=== PATIENT | male | born 1960 | race Caucasian/White ===

== ENCOUNTER 2016-09-18 21:08 | Inpatient (IN) ==
[2016-09-18] MEDS ORDERED: ENOXAPARIN 100 MG/ML SYRINGE SUBCUT STA (22:06)
[2016-09-18] MEDS ORDERED: ONDANSETRON 4 MG/2 ML VIAL IV STA (22:06)
[2016-09-18] MEDS ORDERED: MORPHINE 2 MG/1 ML SYRINGE IV STA ×2 (22:06→23:15)
[2016-09-18] MEDS ORDERED: SODIUM CHLORIDE 0.9% 500 ML IV STA (22:06)
[2016-09-18] MEDS ORDERED: ASPIRIN 325 MG TABLET PO STA (22:06)
[2016-09-18] MEDS ORDERED: NITROGLYCERIN 2% OINT 1 INCH/GM PACK TOP STA (22:06)
--- NOTE | 2016-09-18 22:10 | EKG Report ---
Stationary ECG Study [facility] ER Test Date: 09/18/2016 9:18:30 PM Pat Name: MELE ESPINOSA Department: Room: Gender: M Match Marker: Suzanne : 1960 Requested by: Toan Wen Order Number: [id number] Reading MD: BRENT GANDARA Intervals [place] Rate: 70 P: 60 HI: 176 QRS: 9 QRSD: 111 T: 39 QT: 372 QTc: 392 Interpretive Statements SINUS RHYTHM NONSPECIFIC INTRAVENTRICULAR CONDUCTION DELAY Minimal ST DEPRESSION Abnormal R wave progression, consider lead misplacement Electronically Signed On 09-21-16 08:38:47 DRAPERY INSPECTOR by BRENT GANDARA [id number]
[2016-09-18] MEDS ORDERED: ASPIRIN 325 MG TABLET ONE (22:18)
[2016-09-18] MEDS ORDERED: ENOXAPARIN 100 MG/ML SYRINGE SUBCUT ONE (22:18)
[2016-09-18] MEDS ORDERED: MORPHINE 2 MG/1 ML SYRINGE ONE ×2 (22:18→23:18)
[2016-09-18] MEDS ORDERED: ONDANSETRON 4 MG/2 ML VIAL ONE (22:18)
[2016-09-18] MEDS ORDERED: NITROGLYCERIN 2% OINT 1 INCH/GM PACK TOP ONE (22:18)
[2016-09-18] MEDS ORDERED: ENOXAPARIN 120 MG/0.8 ML SYRINGE SUBCUT ONE (22:20)
[2016-09-18 22:27] LABS: Basophils # 0.1 10*3/uL (0.0-0.2); Basophils % 0.6 % (0.0-0.8); Eosinophils # 0.2 10*3/uL (0.0-0.87); Eosinophils % 1.3 % (0.00-10.9); Hematocrit 44.1 VOL% (42.0-52.0); Immature Granulocytes % 0.3 %; Immature Granulocytes Absolute 0.06 #; Lymphocytes # 2.5 10*3/uL (1.4-4.0); Lymphocytes % 14.2 % (21.2-54.2); Mean Corpuscular Hemoglobin 30 PG (27-34); Mean Corpuscular Volume 88.2 FL (87-102); Mean Platelet Volume 10.1 FL (9.6-12.0); Monocytes # 1.5 10*3/uL (0.11-0.8); Monocytes % 8.2 % (1.7-12.7); Neutrophils # 13.4 10*3/uL (1.4-7.4); Neutrophils % 75.4 % (38.7-73.9); Platelet Count 218 T/CUMM (130-400); Red Cell Distribution Width 13.2 % (9.3-17.3); White Blood Count 17.8 T/CUMM (4-12)
[2016-09-18 22:36] LABS: PT Patient Result 10.8 SECS
[2016-09-18 22:58] LABS: CKMB % 8.8 %
[2016-09-18 23:00] LABS: Calcium 8.6 MG/DL (8.5-10.1); Potassium 3.6 MMOL/L (3.5-5.1)
[2016-09-18 23:01] LABS: Troponin I Only 32.3 NG/ML (0.00-0.045)
--- NOTE | 2016-09-18 23:02 | XRay Report ---
History: Chest pain Date: 09/18/2016 Study: Chest x-ray AP portable Comparison exam: No previous chest x-ray available The cardiac silhouette is not enlarged. There is no mediastinal mass. There is no pulmonary vascular engorgement. There is no gross pleural effusion. The lungs are clear for shallow breath. There is [id number] thoracic spondylosis. Impression: Shallow inspiration. No acute cardiopulmonary process PROCEDURE INTERPRETED AT [facility] DEPARTMENT OF RADIOLOGY Final Report Signed by: Dr. Pamela Mckeon
[2016-09-18] MEDS ORDERED: TICAGRELOR 90 MG TABLET PO STA (23:06)
[2016-09-18] MEDS ORDERED: guaiFENesin/DM ER 600-30 MG TABLET PO PRN (23:17)
[2016-09-18] MEDS ORDERED: NICOTINE 21 MG/24 HR PATCH TRANSDERM PRN (23:17)
[2016-09-18] MEDS ORDERED: DOCUSATE SODIUM 100 MG CAPSULE PO PRN (23:17)
[2016-09-18] MEDS ORDERED: POTASSIUM CHLORIDE 20 MEQ TABLET PO PRN (23:17)
[2016-09-18] MEDS ORDERED: MAGNESIUM SULF RIDER 4 GM in PREMIX 1 EACH IV PRN (23:17)
[2016-09-18] MEDS ORDERED: MAGNESIUM SULF RIDER 2 GM in PREMIX 1 EACH IV PRN (23:17)
[2016-09-18] MEDS ORDERED: diphenhydrAMINE CAP 25 MG CAPSULE PO PRN (23:17)
--- NOTE | 2016-09-18 23:17 | Emergency Department Note ---
Lore Covarrubias Emily, am scribing for, and in the presence of, Toan Wen MD 22: 13. Behzad Covarrubias Robert M, MD, personally performed the services described in this documentation, ascribed by Sade Torrez in my presence, and it is both accurate and complete . Arrival - Arrival Chief Complaint: Chest Pain Stated Complaint: Chest pains/ hurting in chest ED Nursing Triage Note: c/c chest pain in epigastric area, non-radiating, no shortness of breath, no diaphoresis. Mode of Arrival: Ambulatory Limitations: No Limitations Source: Patient - History of Present Illness HPI Narrative: Pt is a 56 y/o male who came to ED with c/o mid chest pain that started when waking up this morning. Pt reports he has had epigastric pain all week but nothing like today's chest pain. Pt thought it was indigestion when he woke up this morning but the pain has continued throughout the day. Pt has experienced dyspnea on exertion and when he rests, the pain resolves. Pt denies PCP, smoking, or previous heart issues. No other complaint/pain in ED. Onset (ago): week(s) Consistency: constant Severity: mild Severity scale (1-10): 2 Quality: aching Allergies/Adverse Reactions: Allergies Allergy/AdvReac Type Severity Reaction Status Date / Time No Known Allergies Allergy Unverified 09/18/16 21:14 Home Medications: Home Medications Medication Instructions Recorded Confirmed Type No Known Home Medications [No 09/18/16 09/18/16 History Known Home Medications] Review of System - Review of System 12 point system: reviewed and no additional remarkable complaints except as stated - Review of System Constitutional: Absent: chills, fever, weakness Respiratory: Absent: cough, respiratory distress Cardiovascular: Present: chest pain, dyspnea on exertion Gastrointestinal: Absent: abdominal pain, nausea, vomiting Musculoskeletal: Absent: arm pain, back pain, leg pain, neck pain Skin: Absent: rash Neurological: Absent: headache Medical,Surgical,& Family Hx - Social History Smoking Status: Never smoker Frequency of Alcohol Use: None Type of Drug Use: None Exam Vital Signs: Vital Signs Temperature 97.7 F 09/18/16 21:11 Pulse Rate 73 09/18/16 21:11 Respiratory Rate 18 09/18/16 22:32 Blood Pressure 137/83 09/18/16 21:11 O2 Sat by Pulse Oximetry 98 09/18/16 21:11 - General General appearance: alert, in no apparent distress - Head Head exam: Present: atraumatic, normocephalic - Eye Eye exam: Present: PERRL, EOMI - ENT ENT exam: Present: mucous membranes moist. Absent: mucous membranes dry - Neck Neck exam: Present: full ROM. Absent: tenderness - Chest Chest inspection: Present: symmetric chest wall rise. Absent: tenderness - Respiratory Respiratory exam: Present: normal lung sounds bilaterally. Absent: respiratory distress - Cardiovascular Cardiovascular exam: Present: regular rate, normal rhythm, normal heart sounds - Abdominal Exam Abdominal exam: Present: soft. Absent: distention, tenderness - Extremities Exam Extremities exam: Present: full ROM. Absent: tenderness, pedal edema - Neurological Exam Neurological exam: Present: alert, oriented X3, CN II-XII intact. Absent: motor sensory deficit - Psychiatric Psychiatric exam: Present: normal affect, normal mood - Skin Skin exam: Present: warm, dry Course - Consultations Consultation #1: Dr. Valentin was paged. Time: 23:06 Consultation #2: Discussed the patient with Dr. Valentin who feels that we can care for the patient here despite the fact that we are completely at capacity. We will maintain the patient in the emergency department and treat him symptomatically. If he changes or becomes unstable we will notify Dr. Valentin and he will taken to label pinker. Time: 23:16 Results - Labs CBC & BMP: 09/18/16 22:11 09/18/16 22:11 Lab Results: I have reviewed the patients labs Labs: Lab Results WBC 17.8 T/CUMM (4-12) H 09/18/16 22:11 RBC 5.00 MC/CUMM (3.8-5.5) 09/18/16 22:11 Hgb 15.0 GM/DL (14.0-18.0) 09/18/16 22:11 Hct 44.1 VOL% (42.0-52.0) 09/18/16 22:11 MCV 88.2 FL (87-102) 09/18/16 22:11 MCH 30 PG (27-34) 09/18/16 22:11 MCHC 34.0 GM/DL (32-36) 09/18/16 22:11 RDW 13.2 % (9.3-17.3) 09/18/16 22:11 Plt Count 218 T/CUMM (130-400) 09/18/16 22:11 MPV 10.1 FL (9.6-12.0) 09/18/16 22:11 Neut % (Auto) 75.4 % (38.7-73.9) H 09/18/16 22:11 Lymph % (Auto) 14.2 % (21.2-54.2) L 09/18/16 22:11 [place] % (Auto) 8.2 % (1.7-12.7) 09/18/16 22:11 Eos % (Auto) 1.3 % (0.00-10.9) 09/18/16 22:11 Baso % (Auto) 0.6 % (0.0-0.8) 09/18/16 22:11 Neut # (Auto) 13.4 10*3/uL (1.4-7.4) H 09/18/16 22:11 Lymph # (Auto) 2.5 10*3/uL (1.4-4.0) 09/18/16 22:11 [place] # (Auto) 1.5 10*3/uL (0.11-0.8) H 09/18/16 22:11 Eos # (Auto) 0.2 10*3/uL (0.0-0.87) 09/18/16 22:11 Baso # (Auto) 0.1 10*3/uL (0.0-0.2) 09/18/16 22:11 Immature Gran % 0.3 % 09/18/16 22: Nucleated RBC % 0.0 /100WBC 09/18/16 22:11 Immature Gran # 0.06 # 09/18/16 22: Nucleated RBCs # 0.00 10*3/uL 09/18/16 22:11 INR 1.0 09/18/16 22:11 PT Patient/Control Mix 10.8 SECS 09/18/16 22:11 Sodium 143 MMOL/L (136-145) 09/18/16 22:11 Potassium 3.6 MMOL/L (3.5-5.1) 09/18/16 22: Chloride 106 MMOL/L (98-107) 09/18/16 22:11 Carbon Dioxide 27 MMOL/L (21-32) 09/18/16 22:11 Anion Gap 13.6 MMOL/L (5.0-15.0) 09/18/16 22:11 BUN 10 MG/DL (7-18) 09/18/16 22:11 Creatinine 0.90 MG/DL (0.70-1.30) 09/18/16 22:11 GFR Calculation 130 ML/MIN 09/18/16 22:11 BUN/Creatinine Ratio 11.00 RATIO (6.00-20.00) 09/18/16 22:11 Glucose 99 MG/DL (74-106) 09/18/16 22:11 Calculated Osmolality 283.0 MOS/KG (273-304) 09/18/16 22:11 Calcium 8.6 MG/DL (8.5-10.1) 09/18/16 22:11 Total Creatine Kinase 1480 U/L (39-308) H 09/18/16 22:11 CK-MB (CK-2) 130.3 U/L (0.5-3.6) H 09/18/16 22:11 CK and CKMB Interp 8.8 % 09/18/16 22:11 Troponin I 32.300 NG/ML (0.00-0.045) H 09/18/16 22:11 Lipase 154.0 U/L (73-393) 09/18/16 22:11 - EKG EKG results: interpreted by ERMD (nonspecific ST changes in the septal leads) - Diagnostic Findings Procedure: Chest x-ray: report reviewed by me Disposition Clinical Impression: Non-STEMI (non-ST elevated myocardial infarction) Case discussed with: patient, patient's family Disposition: Still a Patient Condition: Stable Time of Disposition: 23:05
[2016-09-18] MEDS ORDERED: TICAGRELOR 90 MG TABLET ONE (23:18)
[2016-09-18] MEDS ORDERED: SODIUM CHLORIDE 0.45% 1,000 ML IV SCH (23:30)
[2016-09-19 00:08] LABS: Apearance,Urine CLEAR (Clear); Bilirubin,Urine Negative (Negative); Blood, Urine Negative (Negative); Glucose,Urine (UA) Negative (Negative); Ketones,Urine Negative (Negative); Mucus,Urine Occasional /LPF (Occasional); Nitrite,Urine Negative (Negative); Protein,Urine Negative; RBC,Urine <1 /HPF (0-4); Squamous Epithelial Cell,Urine Occasional /HPF (0-10); Urine Color Straw (Yellow); Urine Specific Gravity 1.003 (1.001-1.035); Urine Urobilinogen < 2.0 EU/DL (0.2-1.0)
--- NOTE | 2016-09-19 01:15 | EKG Report ---
Stationary ECG Study [facility] ER Test Date: 09/19/2016 1:13:15 AM Pat Name: MELE ESPINOSA Department: Room: Gender: M Straw Hat Brim Raiser Operator: DONNA : 1960 Requested by: Toan Wen Order Number: [id number] Reading MD: BRENT GANDARA Intervals [place] Rate: 61 P: 25 FL: 173 QRS: 2 QRSD: 104 T: -1 QT: 397 QTc: 400 Interpretive Statements SINUS RHYTHM NONSPECIFIC T-WAVE ABNORMALITY Electronically Signed On 09-21-16 09:15:44 EMBEDDED HARDWARE ENGINEER by BRENT GANDARA [id number]
[2016-09-19 02:16] LABS: CKMB % 8.8 %
[2016-09-19 02:20] LABS: Troponin I Only 36.2 NG/ML (0.00-0.045)
[2016-09-19] MEDS ORDERED: MORPHINE 2 MG/1 ML SYRINGE ONE ×2 (02:30→02:41)
[2016-09-19] MEDS ORDERED: MORPHINE 2 MG/1 ML SYRINGE IV STA (02:51)
--- NOTE | 2016-09-19 04:30 | EKG Report ---
Stationary ECG Study [facility] ER Test Date: 09/19/2016 4:28:05 AM Pat Name: MELE ESPINOSA Department: Room: 128 Gender: M Geology Technician: HAYLEY : 1960 Requested by: Toan Wen Order Number: [id number] Reading MD: BRENT GANDARA Intervals [place] Rate: 64 P: 47 [place]: 172 QRS: 4 QRSD: 95 T: 11 QT: 383 QTc: 392 Interpretive Statements SINUS RHYTHM NONSPECIFIC T-WAVE ABNORMALITY Electronically Signed On 09-21-16 09:18:16 TELEHEALTH DIRECTOR by BRENT GANDARA [email or web address]
[2016-09-19] MEDS ORDERED: MAGNESIUM SULF RIDER 2 GM in PREMIX 1 EACH IV PRN ×2 (08:01→11:54)
[2016-09-19] MEDS ORDERED: diphenhydrAMINE CAP 25 MG CAPSULE PO ONE (08:01)
[2016-09-19] MEDS ORDERED: POTASSIUM CHLORIDE RIDER 10 MEQ in PREMIX 1 EACH IV PRN (08:01)
[2016-09-19] MEDS ORDERED: DIAZEPAM 5 MG TABLET PO ONE (08:01)
--- NOTE | 2016-09-19 08:15 | Cardiology History & Physical ---
Assessment and Plan (1) Non-STEMI (non-ST elevated myocardial infarction) Status: Acute Assessment and plan: 1. 56 year-old WM with family history of CAD (stents in his father starting in his 60s), with one week of exertional angina which is mild but more severe chest pain throughout the day before 13 for hours at a time which eventually resolved emergency room after treatment with Lovenox, aspirin Brilinta 2. His EKG is benign without significant ST changes, but with significant troponin elevation rhythm 20 confirming diagnosis of non-STEMI 3. Add high intensity statin and low-dose beta buddy 4. Left heart catheterization this morning to define his coronary anatomy with intervention as appropriate I discussed with the patient arrest and benefits of heart catheterization including but not limited to: , stroke, heart attack, vascular damage, reaction to medicine or dye, bleeding requiring blood transfusion, failure the procedure, possible need for planned or emergency heart surgery. I have answered all the patient's questions and the patient is agreeable to proceed. Current Visit: Yes History of Present Illness Chief complaint: cp History of present illness: Mr. Patel is a 56 year old male with no known medical history, reports one- week history of mild substernal exertional chest discomfort. However the morning of September 18 after getting up he developed more severe chest discomfort that lasted for hours at a time and waxed and waned throughout the day. He eventually came to the emergency room responded have significant troponin elevation, and was treated with Lovenox and aspirin Brilinta. His chest pain eventually resolved. He was kept emergency room on his was no beds for him. He really has not had much in the way of shortness of breath today. He denies nausea vomiting diaphoresis palpitations dizziness. He denies a previous bradycardia problems. Home Medications Medication Instructions Recorded Confirmed Type No Known Home Medications [No 09/18/16 09/18/16 History Known Home Medications] Allergies Allergy/AdvReac Type Severity Reaction Status Date / Time No Known Allergies Allergy Unverified 09/18/16 21:14 - Cardiovascular Cardiovascular: Present: as per HPI. Absent: chest pain at rest, chest pain with activity - Respiratory Respiratory: Present: as per HPI. Absent: cough, hemoptysis, wheezing Medical,Surgical,& Family Hx - Social History Smoking Status: Never smoker Frequency of Alcohol Use: None Type of Drug Use: None Cardiology Physical Exam - Constitutional Vitals: Vital Signs Temp Pulse Resp BP Pulse Ox 97.7 F 73 18 137/83 98 09/18/16 21:11 09/18/16 21:11 09/18/16 22:32 09/18/16 21:11 09/18/16 21:11 Intake and Output 09/18/16 09/19/16 09/19/16 23:59 07:59 15:59 Other: Weight 113.398 kg General appearance: normal weight, no acute distress - Head Head exam: Present: normal inspection, normocephalic, atraumatic - Respiratory Respiratory exam: Present: clear to auscultation bilaterally. Absent: stridor, wheezes - Cardiovascular Cardiovascular exam: Present: regular rate and rhythm. Absent: diastolic murmur , rubs, systolic murmur - GI/Abdominal GI/Abdominal exam: Present: soft. Absent: tenderness - Extremities Exam Extremities exam: Absent: edema - Neurological Exam Neurological exam: Present: alert, oriented X3 - Psychiatric Psychiatric exam: Present: normal affect Result/EKG - Labs CBC & BMP: 09/18/16 22:11 09/18/16 22:11 Labs: Laboratory Results - last 24 hr 09/18/16 09/18/16 09/18/16 22:11 22:11 22:11 WBC RBC Hgb Hct MCV MCH MCHC RDW Plt Count MPV Neut % (Auto) Lymph % (Auto) [place] % (Auto) Eos % (Auto) Baso % (Auto) Neut # (Auto) Lymph # (Auto) [place] # (Auto) Eos # (Auto) Baso # (Auto) Immature Gran % Nucleated RBC % Immature Gran # Nucleated RBCs # INR 1.0 PT Patient/Control Mix 10.8 Sodium 143 Potassium 3.6 Chloride 106 Carbon Dioxide 27 Anion Gap 13.6 BUN 10 Creatinine 0.90 GFR Calculation 130 BUN/Creatinine Ratio 11.00 Glucose 99 Calculated Osmolality 283.0 Calcium 8.6 Total Creatine Kinase CK-MB (CK-2) CK and CKMB Interp Troponin I B-Natriuretic Peptide 65 Lipase 154.0 Urine Color Urine Appearance Urine pH Ur Specific [place] Urine Protein Urine Glucose (UA) Urine Ketones Urine Blood Urine Nitrate Urine Bilirubin Urine Urobilinogen Urine Leukocytes Urine RBC Ur Squamous Epith Cells Urine Mucus Ur Culture Indicated? 09/18/16 09/18/16 09/18/16 22:11 22:11 23:50 WBC 17.8 H RBC 5.00 Hgb 15.0 Hct 44.1 MCV 88.2 MCH 30 MCHC 34.0 RDW 13.2 Plt Count 218 MPV 10.1 Neut % (Auto) 75.4 H Lymph % (Auto) 14.2 L [place] % (Auto) 8.2 Eos % (Auto) 1.3 Baso % (Auto) 0.6 Neut # (Auto) 13.4 H Lymph # (Auto) 2.5 [place] # (Auto) 1.5 H Eos # (Auto) 0.2 Baso # (Auto) 0.1 Immature Gran % 0.3 Nucleated RBC % 0.0 Immature Gran # 0.06 Nucleated RBCs # 0.00 INR PT Patient/Control Mix Sodium Potassium Chloride Carbon Dioxide Anion Gap BUN Creatinine GFR Calculation BUN/Creatinine Ratio Glucose Calculated Osmolality Calcium Total Creatine Kinase 1480 H CK-MB (CK-2) 130.3 H CK and CKMB Interp 8.8 Troponin I 32.300 H B-Natriuretic Peptide Lipase Urine Color Straw Urine Appearance Clear Urine pH 5.0 Ur Specific [place] 1.003 Urine Protein Negative Urine Glucose (UA) Negative Urine Ketones Negative Urine Blood Negative Urine Nitrate Negative Urine Bilirubin Negative Urine Urobilinogen < 2.0 H Urine Leukocytes Negative Urine RBC <1 Ur Squamous Epith Cells Occasional Urine Mucus Occasional Ur Culture Indicated? Not indicated 09/19/16 01:09 WBC RBC Hgb Hct MCV MCH MCHC RDW Plt Count MPV Neut % (Auto) Lymph % (Auto) [place] % (Auto) Eos % (Auto) Baso % (Auto) Neut # (Auto) Lymph # (Auto) [place] # (Auto) Eos # (Auto) Baso # (Auto) Immature Gran % Nucleated RBC % Immature Gran # Nucleated RBCs # INR PT Patient/Control Mix Sodium Potassium Chloride Carbon Dioxide Anion Gap BUN Creatinine GFR Calculation BUN/Creatinine Ratio Glucose Calculated Osmolality Calcium Total Creatine Kinase 1366 H CK-MB (CK-2) 119.8 H D CK and CKMB Interp 8.8 Troponin I 36.200 H B-Natriuretic Peptide Lipase Urine Color Urine Appearance Urine pH Ur Specific [place] Urine Protein Urine Glucose (UA) Urine Ketones Urine Blood Urine Nitrate Urine Bilirubin Urine Urobilinogen Urine Leukocytes Urine RBC Ur Squamous Epith Cells Urine Mucus Ur Culture Indicated? - EKG EKG results: WNL, sinus rhythm
[2016-09-19 08:28] LABS: CKMB % 7.9 %
[2016-09-19 08:29] LABS: Troponin I Only 35.6 NG/ML (0.00-0.045)
[2016-09-19] MEDS ORDERED: MIDAZOLAM 2 MG/2 ML VIAL ONE (08:30)
[2016-09-19] MEDS ORDERED: LIDOCAINE 1% 20 ML VIAL ONE (08:30)
[2016-09-19] MEDS ORDERED: HYDROmorphone 2 MG/1 ML VIAL ONE (08:30)
--- NOTE | 2016-09-19 08:32 | EKG Report ---
Stationary ECG Study [facility] ER Test Date: 09/19/2016 8:30:38 AM Pat Name: MELE ESPINOSA Department: Room: 128 Gender: M Spiral Spring Winder: : 1960 Requested by: Toan Wen Order Number: [id number] Reading MD: IZABELA FRAZIER Intervals [place] Rate: 63 P: 24 [place]: 161 QRS: 4 QRSD: 105 T: 5 QT: 383 QTc: 390 Interpretive Statements SINUS RHYTHM NONSPECIFIC T-WAVE ABNORMALITY Electronically Signed On 09-21-16 12:02:43 CHEF UNDER by IZABELA FRAZIER [email or web address]
[2016-09-19] MEDS ORDERED: ENOXAPARIN 60 MG/0.6 ML SYRINGE ONE (09:16)
[2016-09-19] MEDS ORDERED: NITROGLYCERIN SL 0.4 MG TABLET SL PRN (09:48)
[2016-09-19] MEDS ORDERED: ONDANSETRON 4 MG/2 ML VIAL IV PRN (09:48)
[2016-09-19] MEDS ORDERED: ZALEPLON 5 MG CAPSULE PO PRN (09:48)
--- NOTE | 2016-09-19 10:07 | Cardiac Catheterization ---
Date of Procedure:: 09/19/16 Post-op diagnosis: same Procedure: Procedures performed: 1. Left heart catheterization 2. Coronary angiography 3. Left ventriculography 4. Angioplasty and stenting of mid circumflex occlusion with drug-eluting stent (2.5 x 16) 5. Angioplasty of proximal OM 3 stenosis (2.25 x 20) 6. Right femoral arteriotomy closure with Angio-Seal device Brief summary: Mr. Patel is a 56-year-old with persistent chest pain throughout the day September 18 with benign EKG who ruled in for myocardial infarction. Description of procedure: After obtaining informed consent, the right groin was prepped and draped in the usual sterile fashion. Next a short 6 Alban[place] sheath was placed in the right femoral artery using a modified Seldinger technique, after the patient received IV sedation and local anesthetic. Next a JL4 catheter was advanced over a guidewire under fluoroscopic guidance, and was engaged to the left coronary artery after which angiography was performed in multiple views. This was then removed over a wire, and a JR4 catheter was advanced in similar fashion was engaged the right coronary artery after which angiography was performed in multiple views. Percutaneous coronary intervention wasn't performed as described below. Next a bent pigtail catheter was advanced into the left ventricle, where hemodynamic measurements were obtained, left ventriculography was performed. I was able to visualize the sheath on a "tong down" shot which showed the sheath was inserted in the right common femoral artery in a vessel suitable for closure. Hemostasis was obtained with Angio-Seal device with no residual bleeding. He was transferred from the radiographer cardiac catheterization in good condition without complication. Percutaneous coronary intervention: The patient arrived the radiographer cardiac catheterization haven't received Lovenox daily 12 hours ago, but haven't received aspirin and loading dose of Brilinta. He was given an additional 0.4 millions per kilogram of intravenous Lovenox. An EBU 3.5 guiding catheter was advancing his left cornea artery which provided reasonably good support. A [place] wire was advanced to the area of mid circumflex occlusion and with multiple attempts using a 2.25 x 20 balloon was eventually able to cross the occlusion into the OM 3 branch. I performed angioplasty across occlusion area. There appeared to be 80-90% proximal stenosis of the OM 3, and there was greater than 60% residual stenosis in the midcircumflex. I then removed the balloon and advanced a 2.5 x 16 Xience dramatic stent across area of mid circumflex occlusion leading into short of the bifurcation into the OM 2 and om3 branch. The stent was deployed at 9 radha. The stent appeared to be slightly oversized distally and was well sties proximally. I then lost wire access as I was trying to advance a 2.25 x 20 balloon into the on 3 branch. Fortunately to recross without great difficulty. I performed a prolonged low pressure inflation at 3 radha from the very distal edge of the stent into the OM 3 branch crossing the OM 2. There is a good angiographic result with less than 30% residual stenosis. The patient tolerated she will without complication. There was ERWIN 0 flow with beginning and ERWIN-3 flow thin the procedure. There was less than 20% residual stenosis in the proximal and 3, and 0 residual stenosis in the midcircumflex stent. Coronary angiography: Left main coronary artery is normal developed 3 disease. Left anterior thenar is of average caliber and reaches the apex with some mid LAD "bridging" but without stenosis. Is a fairly average D1 branch and an average caliber due to branch. There is only minimal disease of less than 30% noted. The circumflex gives off a very high average caliber OM1 branch, with the mid circumflex occlusion. A modest amount of the distal OM 2 and 3 can be seen filling by right to left collaterals. The right coronary is a dominant vessel is of average caliber. There is less than 30% mid stenosis. There is no average caliber PDA and a thin posterolaterals branch. Left ventricular to: The left ventricle is normal overall LV systolic function with ejection fraction estimated 55% with moderate lateral hypokinesis. Impression: 1. Normal overall LV systolic function with ejection fraction estimated approximately 55% with lateral hypokinesis 2. Right dominant system 3. Coronary artery disease as described above including but not limited to: A. Mild irregularities in the LAD system with no discrete lesions, and some benign mid LAD bridging without stenosis B. Mid circumflex occlusion with OM 2 and on for branches filling modestly from right to left collaterals C. Less than 30% mid RCA stenosis 4. Status post angioplasty stenting of mid circumflex occlusion with 2.5 x 16 Xience drug-eluting stent with excellent result 5. Status post angioplasty of 80% proximal and 3 stenosis with 2.25 x 20 balloon with less than 20% residual stenosis Recommendation discussion: Is clear that the mid circumflex occlusion is Mr. Patel's culprit lesion. I believe he achieved a very good result. He will continue on baby aspirin Brilinta. He should continue on dual antiplatelet therapy for a year possible. I will start high-intensity statin therapy and a low-dose aspirin. Old he'll be watched closely post procedure. Anesthesia: minimal conscious sedation Surgeon / Physician: Nahun Villalobos Line Cleaner: other Estimated blood loss: minimal Specimens: none sent Condition: stable Disposition: floor - Medications / Follow-up
--- NOTE | 2016-09-19 10:39 | EKG Report ---
Stationary ECG Study [facility] Test Date: 09/19/2016 10:38:50 AM Pat Name: MELE ESPINOSA Department: Room: 128 Gender: M Administrative Court Justice: : 1960 Requested by: Nahun Ladd Order Number: [id number] Reading MD: IZABELA FRAZIER Intervals [place] Rate: 68 P: 48 [place]: 169 QRS: -11 QRSD: 96 T: 41 QT: 372 QTc: 390 Interpretive Statements SINUS RHYTHM NONSPECIFIC T WAVE ABNORMALITY Electronically Signed On 09-21-16 12:12:23 SCHOOL GUARD by IZABELA FRAZIER [email or web address]
[2016-09-19] MEDS ORDERED: MAGNESIUM SULF RIDER 4 GM in PREMIX 1 EACH IV PRN (11:54)
[2016-09-19 12:31] LABS: CKMB % 7.3 %
[2016-09-19 12:34] LABS: Troponin I Only 61.5 NG/ML (0.00-0.045)
--- NOTE | 2016-09-19 14:37 | EKG Report ---
Stationary ECG Study [facility] Test Date: 09/19/2016 2:36:07 PM Pat Name: MELE ESPINOSA Department: Room: 128 Gender: M Jack Spooler Tender: : 1960 Requested by: Toan Wen Order Number: [id number] Reading MD: IZABELA FRAZIER Intervals [place] Rate: 68 P: 58 [place]: 173 QRS: -1 QRSD: 105 T: 6 QT: 367 QTc: 385 Interpretive Statements SINUS RHYTHM LOW VOLTAGE QRS COMPLEXES IN THE LIMB LEADS Electronically Signed On 09-21-16 12:23:31 AUTO PARTS CLERK by IZABELA FRAZIER [email or web address]
[2016-09-19] MEDS: PANTOPRAZOLE 40 MG TABLET PO SCH (14:51)
[2016-09-19] MEDS: ATORVASTATIN 40 MG TABLET PO SCH (14:51)
[2016-09-19] MEDS: TICAGRELOR 90 MG TABLET PO SCH ×2 (14:52→20:19)
[2016-09-19] MEDS: ASPIRIN EC 81 MG TABLET PO SCH (14:52)
[2016-09-19] MEDS: CARVEDILOL 3.125 MG TABLET PO SCH ×2 (14:52→20:19)
--- NOTE | 2016-09-19 17:07 | EKG Report ---
Stationary ECG Study [facility] Test Date: 09/19/2016 5:07:15 PM Pat Name: MELE ESPINOSA Department: Room: 128 Gender: M Pediatric Pathologist: JASON : 1960 Requested by: Toan Wen Order Number: [id number] Reading MD: IZABELA FRAZIER Intervals [place] Rate: 73 P: 62 [place]: 176 QRS: -15 QRSD: 102 T: 23 QT: 356 QTc: 382 Interpretive Statements SINUS RHYTHM LOW VOLTAGE QRS COMPLEXES IN THE LIMB LEADS Electronically Signed On 09-21-16 12:31:08 CLINICAL MENTAL HEALTH COUNSELOR by IZABELA RFAZIER [id number]
[2016-09-19 17:32] LABS: CKMB % 5.5 %
[2016-09-19 17:34] LABS: Troponin I Only 43.4 NG/ML (0.00-0.045)
[2016-09-19] MEDS: FAMOTIDINE 20 MG TABLET PO SCH (20:19)
[2016-09-20 05:39] LABS: Basophils # 0.1 10*3/uL (0.0-0.2); Basophils % 0.6 % (0.0-0.8); Eosinophils # 0.1 10*3/uL (0.0-0.87); Hematocrit 39.7 VOL% (42.0-52.0); Hemoglobin 13.4 GM/DL (14.0-18.0); Immature Granulocytes % 0.4 %; Immature Granulocytes Absolute 0.05 #; Lymphocytes # 1.4 10*3/uL (1.4-4.0); Lymphocytes % 11.5 % (21.2-54.2); Mean Corpuscular HGB Conc 33.8 GM/DL (32-36); Mean Corpuscular Hemoglobin 30 PG (27-34); Mean Corpuscular Volume 88.6 FL (87-102); Mean Platelet Volume 10.7 FL (9.6-12.0); Monocytes # 1.5 10*3/uL (0.11-0.8); Monocytes % 12.6 % (1.7-12.7); Neutrophils % 73.9 % (38.7-73.9); Platelet Count 184 T/CUMM (130-400); Red Blood Count 4.48 MC/CUMM (3.8-5.5); Red Cell Distribution Width 13.5 % (9.3-17.3); White Blood Count 12.2 T/CUMM (4-12)
[2016-09-20 06:22] LABS: CKMB % 3.4 %; Calcium 8.5 MG/DL (8.5-10.1); Potassium 3.9 MMOL/L (3.5-5.1)
[2016-09-20 06:23] LABS: Troponin I Only 14.1 NG/ML (0.00-0.045)
--- NOTE | 2016-09-20 07:52 | EKG Report ---
Stationary ECG Study [facility] Test Date: 09/20/2016 7:52:50 AM Pat Name: MELE ESPINOSA Department: Room: 128 Gender: M Mobile Heavy Equipment Operator: KADIE : 1960 Requested by: Nahun Ladd Order Number: [id number] Reading MD: IZABELA FRAZIER Intervals [place] Rate: 70 P: 55 [place]: 172 QRS: 7 QRSD: 100 T: 59 QT: 372 QTc: 393 Interpretive Statements SINUS RHYTHM Electronically Signed On 09-22-16 12:26:04 RIGGING ENGINEER by IZABELA FRAZIER [email or web address]
--- NOTE | 2016-09-20 08:16 | Discharge Summary ---
Hospital Course - Hospital Course Hospital Course: Mr. Patel is a 56 year old male who had never been followed by cardiology. He presented to the emergency department at [facility] 09/19/2016 with complaints of mild substernal exertional chest discomfort. He was found to have significant troponin elevation, and was treated with Lovenox and aspirin Brilinta. He was subsequently taken to the cardiac catheterization lab where Dr. Villalobos performed heart catheterization with the following noted: Impression: 1. Normal overall LV systolic function with ejection fraction estimated approximately 55% with lateral hypokinesis 2. Right dominant system 3. Coronary artery disease as described above including but not limited to: A. Mild irregularities in the LAD system with no discrete lesions, and some benign mid LAD bridging without stenosis B. Mid circumflex occlusion with OM 2 and on for branches filling modestly from right to left collaterals C. Less than 30% mid RCA stenosis 4. Status post angioplasty stenting of mid circumflex occlusion with 2.5 x 16 Xience drug-eluting stent with excellent result 5. Status post angioplasty of 80% proximal and 3 stenosis with 2.25 x 20 balloon with less than 20% residual stenosis Recommendation discussion: The culprit lesion (mid Cx occlusion) was addressed. Good result achieved. Overnight, patient has done well. He has been ambulating without complaints of chest pain, heaviness or tightness. He states he "feels good." Right groin free of hematoma or bruit. Long discussion ensued regarding the importance of taking ASA/Brilinta without fail. He verbalized understanding. He is being DC on: ASA 81mg orally daily Brilinta 90mg orally BID WITHOUT FAIL Atorvastatin 80mg orally QHS Coreg 3.125mg orally BID Valsartan 40mg orally daily Greater than 5 minutes was spent discussing the importance of smoking cessation. - Time spent with patient Time with patient DS: Greater than 30 minutes Time spent discussing smoking cessation with patient: 3 to 10 minutes Diagnosis - Discharge Diagnosis (1) Dyslipidemia Status: Chronic (2) Tobacco abuse Status: Chronic (3) CAD (coronary artery disease) Status: Chronic (4) Stented coronary artery Status: Chronic (5) Non-STEMI (non-ST elevated myocardial infarction) Status: Resolved Specialty Discharge - Follow Up or Referrals Follow up with: Nahun Villalobos MD [Physician] - 1 Week (Labs: BMP, Mg, CBC. EKG) Discharge Plan - Discharge Data Disposition: Disch To Home/Self Care Condition at Discharge: Stable Discharge Diet: heart healthy Activity: other (post-cath expectations) Hygiene: no restrictions Weight Bearing at Discharge: other (post-cath expectations) Driving: other (post-cath expectations) Contact your physician if you experience:: fever over 101, Difficulty voiding, Redness or swelling, Nausea/Vomiting, Shortness of breath, Bleeding, pain uncontrolled by pain medications - Discharge Medications New Aspirin EC Tab 81 mg PO DAILY #30 tablet Carvedilol [Coreg] 3.125 mg PO BID #60 tablet Atorvastatin [Lipitor] 80 mg PO BEDTIME #30 tablet Ticagrelor [Brilinta] 90 mg PO BID #60 tablet Valsartan [Diovan] 40 mg PO DAILY #30 tablet - Follow Up or Referral Follow Up: Nahun Villalobos MD [Physician] - 1 Week (Labs: BMP, Mg, CBC. EKG) - Forms/Instructions Instructions: Myocardial Infarction (GEN), Left Heart Catheterization (DC), Heart Healthy Diet (GEN), Coronary Intravascular Stent Placement, Magnetic Observer (GEN) Additional Discharge Instructions: Please give patient Brilinta Rx card prior to discharge. Please reintterate importance of bringing ALL MEDICATIONS TO EACH CLINIC VISIT AND ASK NURSE TO REVIEW EACH BOTTLE. Exam - Constitutional Vitals: Period Temp Pulse Resp BP Sys/Hayes Pulse Ox Last 24 Hr 97.1 F-98.2 F 69-88 13-28 102-139/62-83 92-97 General appearance: normal weight, no acute distress - Head Head exam: Present: normal inspection, normocephalic - Eye Eye exam: Present: EOMI, conjunctival injection Pupils: Present: CAROL, normal accommodation - ENT ENT exam: Present: normal external ear exam, normal oropharynx - Neck Neck exam: Absent: lymphadenopathy, tenderness, thyromegaly - Respiratory Respiratory exam: Present: clear to auscultation bilaterally. Absent: accessory muscle use - Cardiovascular Cardiovascular exam: Present: regular rate and rhythm. Absent: systolic murmur - GI/Abdominal GI/Abdominal exam: Present: normal bowel sounds, soft. Absent: tenderness - Extremities Exam Extremities exam: Present: normal capillary refill, full ROM. Absent: calf tenderness, edema - Back Exam Back exam: Absent: CVA tenderness (L), CVA tenderness (R), muscle spasm - Neurological Exam Neurological exam: Present: alert, oriented X3, normal gait - Psychiatric Psychiatric exam: Present: normal affect, normal mood - Skin Skin exam: Present: warm, dry Discharge Results Procedures and tests throughout hospitalization: Pending Orders 09/19/16 08:15 CL heart Stat 09/19/16 12:00 MRSA Surveillence, Inf Control Routine Labs on day of discharge: Labs from last 24 hours 09/20/16 09/20/16 09/19/16 05:14 05:14 16:30 WBC 12.2 H D RBC 4.48 Hgb 13.4 L Hct 39.7 L MCV 88.6 MCH 30 MCHC 33.8 RDW 13.5 Plt Count 184 MPV 10.7 Neut % (Auto) 73.9 Lymph % (Auto) 11.5 L [place] % (Auto) 12.6 Eos % (Auto) 1.0 Baso % (Auto) 0.6 Neut # (Auto) 9.0 H Lymph # (Auto) 1.4 [place] # (Auto) 1.5 H Eos # (Auto) 0.1 Baso # (Auto) 0.1 Immature Gran % 0.4 Nucleated RBC % 0.0 Immature Gran # 0.05 Nucleated RBCs # 0.00 Sodium 143 Potassium 3.9 Chloride 107 Carbon Dioxide 27 Anion Gap 12.9 BUN 11 Creatinine 0.90 GFR Calculation 132 BUN/Creatinine Ratio 12.00 Glucose 104 Calculated Osmolality 283.0 Calcium 8.5 Total Creatine Kinase 537 H D 1101 H CK-MB (CK-2) 18.1 H D 60.6 H D CK and CKMB Interp 3.4 5.5 Troponin I 14.100 H D 43.400 H D 09/19/16 09/19/16 10:42 07:51 WBC RBC Hgb Hct MCV MCH MCHC RDW Plt Count MPV Neut % (Auto) Lymph % (Auto) [place] % (Auto) Eos % (Auto) Baso % (Auto) Neut # (Auto) Lymph # (Auto) [place] # (Auto) Eos # (Auto) Baso # (Auto) Immature Gran % Nucleated RBC % Immature Gran # Nucleated RBCs # Sodium Potassium Chloride Carbon Dioxide Anion Gap BUN Creatinine GFR Calculation BUN/Creatinine Ratio Glucose Calculated Osmolality Calcium Total Creatine Kinase 1180 H 1177 H CK-MB (CK-2) 85.9 H D 93.3 H D CK and CKMB Interp 7.3 7.9 Troponin I 61.500 H D 35.600 H - Imaging and Cardiology Cardiology Procedure: report reviewed by me Procedure: Chest x-ray: report reviewed by me DS: Provider Date of admission: September 19, 2016 Attending physician on admission: Dr. Villalobos Consults: 09/19/16 09:48 Consult to Cardiac Rehabilitation [CONS] Routine Reason for Cardiac Rehabilitation: Appt Out Pt Cardiac Rehab Consult Comment: [email or web address] 09/19/16 11:56 Consult to Pharmacy [CONS] Routine Reason for Pharmacy Consult: Adjust Meds Renal Funct Discharging clinician: Farrah Gallegos NP Expected date of discharge: 09/20/16
[2016-09-20] MEDS ORDERED: VALSARTAN 80 MG TABLET PO SCH (09:00)
[2016-09-20] MEDS: CARVEDILOL 3.125 MG TABLET PO SCH (09:58)
[2016-09-20] MEDS: ASPIRIN EC 81 MG TABLET PO SCH (09:58)
[2016-09-20] MEDS: TICAGRELOR 90 MG TABLET PO SCH (09:58)
[2016-09-20] MEDS: FAMOTIDINE 20 MG TABLET PO SCH (09:59)
[2016-09-20] MEDS: PANTOPRAZOLE 40 MG TABLET PO SCH (09:59)
[2016-09-20] MEDS: ATORVASTATIN 40 MG TABLET PO SCH (09:59)
[2016-09-20 11:45] VITALS: BP 112/71
--- NOTE | 2016-09-21 12:39 | EKG Report ---
Stationary ECG Study [facility] Test Date: 09/19/2016 8:03:34 PM Pat Name: MELE ESPINOSA Department: Room: 128 Gender: M [employer]: SS : 1960 Requested by: Toan Wen Order Number: [id number] Reading MD: IZABELA FRAZIER Intervals [place] Rate: 76 P: 56 TN: 173 QRS: -24 QRSD: 105 T: 28 QT: 349 QTc: 379 Interpretive Statements SINUS RHYTHM LOW VOLTAGE LIMB LEADS Electronically Signed On 09-21-16 12:38:46 COSTUME MISTRESS by IZABELA FRAZIER [email or web address]
== END 2016-09-20 11:43 | disposition home or self-care (01) | DRG 247 ==
LOC: N.ED 21:08 → N.CC 23:17 → N.CL 09-19 09:16 → N.CC 09-19 09:41 → N.CL 09-19 09:41 → UNDODEPER 09-19 09:41 → EDSDCBED 09-19 11:40 → N.CC 09-19 11:40 → N.CL 09-20 11:43 → N.CC 10-02 11:41
PROVIDERS: ADMIT Emergency Medicine; ATTEND Emergency Medicine
PROC: CLCCHCL (ICD-10-PCS; 2016-09-19 09:15)